=== PATIENT | male | born 1965 | race Caucasian/White ===

== ENCOUNTER 2020-11-17 08:35 | Outpatient (CLI) | payer BC, SELFPAY | END 2020-11-17 08:36 | disposition home or self-care (01) | PROVIDERS: PCP Internal Medicine; Visit Provider Physician Assistant | DX: I49.9 Cardiac arrhythmia, unspecified (principal) | CPT/HCPCS: 93225; 93226 ==

== ENCOUNTER 2024-08-14 01:27 | Day surgery (SDC) | payer BC, SELFPAY ==
[2024-08-02 08:54] VITALS: BMI 33.0
--- OUTSIDE RECORDS SUMMARY | 2024-08-14 01:30 | XMS_ITS | Referral Summary ---
Author Organization [facility] Address [address] [place] [address] Care Team Providers Care Armor Officer Name Role Phone Jarred High MD Primary Care Provider [phone]- [phone] Encounters Date Type Department Care Team Description 08/07/2024 12:00 PM SWIMMING POOL MAINTENANCE SUPERVISOR - 08/07/2024 11:59 PM SWIMMING POOL MAINTENANCE SUPERVISOR Hospital Encounter [id number] [address] [place] [address] [address] [place] [address] Chronic pain of left knee Discharge Disposition: Discharge to home or self care 08/07/2024 12:30 PM SWIMMING POOL MAINTENANCE SUPERVISOR Office Visit [facility] Orthopaedic Surgery [address] [place] [address] Medical Office Building [address] [place] [address] Ally Chapin MD Chronic pain of left knee (Primary Dx); Primary osteoarthritis of left knee from Last 3 Months Allergies No known active allergies Medications sildenafiL (VIAGRA) 100 mg tablet 1 Active lisinopriL (PRINIVIL,ZESTR IL) 40 mg tablet 2 Active atorvastatin (LIPITOR) 20 mg tablet Active meloxicam (MOBIC) 15 mg tabletIndicatio ns:Chronic pain of left knee Take 1 tablet (15 mg total) by mouth daily 30 tablet 4 Active buPROPion XL (WELLBUTRIN XL) 150 mg 24 hr tablet 4 Active fenofibrate micronized (LOFIBRA) 134 mg capsule 5 Active Zepbound 15 mg/0.5 mL pen injector 4 Active meloxicam (MOBIC) 15 mg tablet Take 1 tablet (15 mg total) by mouth daily 90 tablet 5 11/06/19 25 Active meloxicam (MOBIC) 15 mg tablet Take 1 tablet (15 mg total) by mouth daily 90 tablet 5 Active Zepbound 5 mg/0.5 mL pen injector 4 08/07/19 25 Discontinu ed(Prabhu burris) Hospital, Clinic, or Other Facility Administered Medication Ordered Dose Route Frequency Start Date End Date Status BUPivacaine HCl (MARCAINE) 0.25 % (2.5 mg/mL) injection 6 mLIndications:Primar y osteoarthritis of left knee 6 mL OTHER One-Time Injection 08/07/2024 5 Ended triamcinolone (KENALOG) 40 mg/mL injection 80 mgIndications:Primar y osteoarthritis of left knee 80 mg intra-artic One-Time Injection 08/07/2024 5 Ended Active Problems Problem Noted Date Diagnosed Date Pain in pelvis 09/12/2016 Lumbar radiculopathy 08/16/2016 Knee pain 05/16/2016 Immunizations Immunization Administration Dates Next Due Influenza, Quadrivalent, Lakia l Culture-based MDCK, Preservative Free, Antibiotic Free, Intramuscular 03/31/2021 Influenza, Quadrivalent, Spl it, Preservative Free, Intramuscular 03/26/2020 Influenza, Unspecified 03/23/2016 Tdap 10/19/2014 ZOSTER Recombinant 05/22/2020,03/30/2020 Social History Tobacco Use Types Packs/Day Years Used Date Smoking Tobacco: Never Sex and Gender Information Value Date Recorded Sex Assigned at Not on file Legal Sex Male 5:04 AM SWIMMING POOL MAINTENANCE SUPERVISOR Gender Identity Not on file Sexual Orientation Not on file Last Filed Vital Signs Vital Sign Reading Time Taken Comments Blood Pressure 111/76 03/01/2024 7:52 AM CDT Pulse 89 03/01/2024 7:52 AM CDT Temperature 35.9 C (96.6 F) 03/01/2024 7:52 AM CDT Respiratory Rate 16 03/01/2024 7:52 AM CDT Oxygen Saturation 98% 03/01/2024 7:52 AM CDT Inhaled Oxygen Concentration - - Weight 111.1 kg (245 lb) 03/01/2024 7:52 AM CDT Height 175.3 cm (5' 9 ) 03/01/2024 7:52 AM CDT Body Mass Index 36.18 03/01/2024 7:52 AM CDT Plan of Treatment Not on file Procedures Procedure Name Priority Date/Time Associated Diagnosis Comments XR KNEE LEFT 4 OR MORE VIEWS Schedule Routine, Read Routine (OP Routine) 08/07/2024 12:33 PM SWIMMING POOL MAINTENANCE SUPERVISOR Chronic pain of left knee [place] ARTHROCENTESIS ASPIR&/INJ MAJOR JT/BURSA W/O US Routine 08/07/2024 12:30 PM SWIMMING POOL MAINTENANCE SUPERVISOR Primary osteoarthritis of left knee from Last 3 Months Results * XR Knee Left 4 or More Views (08/07/2024 12:33 PM SWIMMING POOL MAINTENANCE SUPERVISOR) Anatomical Region Laterality Modality Lower Extremities, Knee Left Computed Radiography 08/07/2024 12:4 4 PM SWIMMING POOL MAINTENANCE SUPERVISOR Impressions 08/07/2024 12:44 PM SWIMMING POOL MAINTENANCE SUPERVISOR Progressive moderate medial and patellofemoral compartment predominant tricompartmental left knee osteoarthritis. Electronically signed by: Adrian Edouard M.D. Narrative 08/07/2024 12:44 PM SWIMMING POOL MAINTENANCE SUPERVISOR XR KNEE LEFT 4 OR MORE VIEWS HISTORY: Left knee pain. FINDINGS: 4 views of the left knee are obtained and compared with 08/03/2022. There is no fracture. There is progressive moderate medial and patellofemoral compartment predominant tricompartmental osteoarthritis. Alignment and soft tissues are normal. There is a small joint effusion. Procedure Note Adrian Edouard MD - 08/07/2024 XR KNEE LEFT 4 OR MORE VIEWS HISTORY: Left knee pain. FINDINGS: 4 views of the left knee are obtained and compared with 08/03/2022. There is no fracture. There is progressive moderate medial and patellofemoral compartment predominant tricompartmental osteoarthritis. Alignment and soft tissues are normal. There is a small joint effusion. IMPRESSION: Progressive moderate medial and patellofemoral compartment predominant tricompartmental left knee osteoarthritis. Electronically signed by: Adrian Edouard M.D. us Ally Chapin MD IMG XR PROCEDURES Louise l Result * [place] ARTHROCENTESIS ASPIR&/INJ MAJOR JT/BURSA W/O US (08/07/2024 12:30 PM SWIMMING POOL MAINTENANCE SUPERVISOR) Narrative Ally Chapin MD - 08/07/2024 12:30 PM SWIMMING POOL MAINTENANCE SUPERVISOR Ally Chapin MD 08/07/2024 12:58 PM Large Joint Injection: L knee Performed by: Ally Chapin MD Authorized by: Ally Chapin MD Large Joint Injection/Aspiration: Consent Given by: Patient Verbal consent obtained: Yes Supporting Documentation: Indications: Pain Procedure Details: Location: Knee Site: L knee Prep: patient was prepped using a clean technique Needle Size: 22 G Approach: Superior lateral Medications: 6 mL BUPivacaine HCl 0.25 % (2.5 mg/mL); 80 mg triamcinolone 40 mg/mL Patient tolerance: Patient tolerated the procedure well with no immediate complications Risks and benefits were discussed with the patient and they elected to proceed with the injection Ally Chapin MD IN CLINIC/BEDSIDE [facility] Final Result from Last 3 Months Insurance [facility] OOS BLUE ACC CHOICE OOS BLUE [facility] CHO[facility] OOS Care Teams Armor Officer Relationship Specialty Start Date End Date Jarred High MD [address] [place], [place] [id number] PCP - General 08/11/16
--- OUTSIDE RECORDS SUMMARY | 2024-08-14 01:30 | XMS_ITS | Clinical Summary ---
Author Organization [facility] al Address [address] [place] [address] Care Team Providers Care Mice Raiser Name Role Phone Jarred High MD Primary Care Provider +1- [phone] Allergies No known active allergies Medications sildenafiL [...] 09/12/2016 Lumbar radiculopathy 08/16/2016 Knee pain 05/16/2016 Encounters Date Type Department Care Team Description 08/07/2024 12:30 PM MARKER HAND Office Visit [facility] Orthopaedic Surgery [address] [facility] Medical Office Building [address] [place] [id number] Ally Chapin MD Chronic pain of left knee (Primary Dx); Primary osteoarthritis of left knee 08/07/2024 12:00 PM MARKER HAND - 08/07/2024 11:59 PM MARKER HAND Hospital Encounter [id number] [address] [place] [address] [address] [place] [id number] Chronic pain of left knee Discharge Disposition: Discharge to home or self care from Last 3 Months Immunizations Immunization Administration Dates Next Due Influenza, Quadrivalent, Lakia l Culture-based MDCK, Preservative Free, Antibiotic Free, Intramuscular 03/31/2021 Influenza, Quadrivalent, Spl it, Preservative Free, Intramuscular 03/26/2020 Influenza, Unspecified 03/23/2016 Tdap 10/19/2014 ZOSTER Recombinant 05/22/2020,03/30/2020 Family History Medical History Relation Name Comments Alcohol abuse Father Family history of alcoholism - (Added by TW Conv) Arthritis Father Family history of arthritis - (Added by TW Conv) Heart disease Father Family history of cardiac disorder - (Added by TW Conv) Hypertension Father Family history of hypertension - (Added by TW Conv) Alcohol abuse Mother Family history of alcoholism - (Added by TW Conv) Arthritis Mother Family history of arthritis - (Added by TW Conv) Heart disease Mother Family history of cardiac disorder - (Added by TW Conv) Hypertension Mother Family history of hypertension - (Added by TW Conv) Relation Name Status Comments Father Mother Social History Tobacco Use Types Packs/Day Years Used Date Smoking Tobacco: Never Sex and Gender Information Value Date Recorded Sex Assigned at Not on file Legal Sex Male 5:04 AM MARKER HAND Gender Identity Not on file Sexual Orientation Not on file Obstetrics History Last Filed Vital Signs Vital Sign Reading [...] 03/01/2024 7:52 AM CDT Plan of Treatment Health Maintenance Due Date Last Done Comments Colon Cancer Screening-Colonoscopy 1965 Depression Screening 1965 Hepatitis C Screening 1965 Prostate Cancer Screening-PSA 1963 Hepatitis B Screening 12/04/1981 Regular Well Visit/Exam 18-64 12/04/1981 Covid-19 Vaccine ( - 2023-2 5 season) 2024 04/12/2021, 09/01/2020, 08/04/2020 Influenza Vaccine (#1) 2024 , 03/26/2020, 03/23/2016 DTaP/Tdap/Td Vaccine (2 - Td or Tdap) 10/19/2024 10/19/2014 Zoster Vaccine Completed 05/22/2020, 03/30/2020 Pneumococcal vaccine <65 Aged Out No longer eligible based on patient's age to complete this topic Procedures Procedure Name Priority Date/Time Associated Diagnosis Comments XR KNEE LEFT 4 OR MORE VIEWS Schedule Routine, Read Routine (OP Routine) 08/07/2024 12:33 PM MARKER HAND Chronic pain of left knee [place] ARTHROCENTESIS ASPIR&/INJ MAJOR JT/BURSA W/O US Routine 08/07/2024 12:30 PM MARKER HAND Primary osteoarthritis of left knee from Last 3 Months Results * XR Knee Left 4 or More Views (08/07/2024 12:33 PM MARKER HAND) Anatomical Region Laterality Modality Lower Extremities, Knee Left Computed Radiography 08/07/2024 12:4 4 PM MARKER HAND Impressions 08/07/2024 12:44 PM MARKER HAND Progressive moderate medial and patellofemoral compartment predominant tricompartmental left knee osteoarthritis. Electronically signed by: Adrian Edouard M.D. Narrative 08/07/2024 12:44 PM MARKER HAND XR KNEE LEFT 4 OR MORE VIEWS [...] IMG XR PROCEDURES Louise l Result * [place] ARTHROCENTESIS ASPIR&/INJ MAJOR JT/BURSA W/O US (08/07/2024 12:30 PM MARKER HAND) Narrative Ally Chapin MD - 08/07/2024 12:30 PM MARKER HAND Ally Chapin MD 08/07/2024 12:58 PM Large [...] they elected to proceed with the injection us Ally Chapin MD IN CLINIC/BEDSIDE NICK MAHONEY Final Result from Last 3 Months Insurance Fundly OOS Fundly OOS BLUE ACC CHOICE OOS Care Teams Mice Raiser Relationship Specialty Start Date End Date Jarred High MD [address] [facility] [address] [place] [address] PCP - General 08/11/16
[2024-08-14 06:45] VITALS: BP 132/79; PULSE 70; RESP 18; TEMP 36.1; O2SAT 96; BMI 34.4
[2024-08-14] MEDS: LACTATED RINGERS 1,000 ML 150 ML IV CONT (06:56)
--- NOTE | 2024-08-14 07:30 | P.PNAN_ITS ---
Anes - Initial Pre Proc Eval Procedure: Operation Date: 08/14/24 08:00 Proposed Procedures p Screening Colonoscopy - Joseph Holcomb MD Date/Time: 08/14/24 07:30 Surgeon: Joseph Holcomb MD Pre Op Diagnosis: Screening for malignant neoplasm of colon. Patient Data Age: 58 Gender: M Height: 1.78 m Weight: 109.1 kg Last Vital Signs Temp 97.0 F L 08/14/24 06:45 Pulse 70 08/14/24 06:45 Resp 18 08/14/24 06:45 BP 132/79 08/14/24 06:45 Pulse Ox 96 08/14/24 06:45 O2 Del Method Room Air 08/14/24 06:45 Allergies Allergy/AdvReac Type Severity Reaction Status Date / Time No Known Allergies Allergy Verified 08/14/24 06:43 Home Medications ?Medication ?Instructions ?Recorded ?Confirmed ?Type atorvastatin 20 mg tablet See Rx Instructions .Route 02/01/24 08/14/24 Rx .COMPLEX #90 tabs bupropion HCl 150 mg 24 hr tablet, 150 mg PO QAM #90 tabs 04/26/24 08/14/24 Rx extended release lisinopril 40 mg tablet 40 mg PO DAILY #90 tabs 04/26/24 08/14/24 Rx tirzepatide (weight loss) 15 15 mg (0.5 mL) subcut WEEKLY #6 mL 06/18/24 08/14/24 Rx mg/0.5 mL subcutaneous pen injector (Zepbound) sildenafil 100 mg tablet 100 mg PO DAILY PRN sexual 07/01/24 08/02/24 Rx activity #24 tabs fenofibrate micronized 134 mg 134 mg PO DAILY #90 caps 07/30/24 08/14/24 Rx capsule Patient hx anesthesia problems: none Family hx anesthesia problems: none Results Review: All pre-operative results and documents have been reviewed as part of the pre- operative evaluation. [facility] Past Medical History Medical History Pure hypercholesterolemia Other fatigue Neuropathy Left ear impacted cerumen Essential (primary) hypertension Dietary counseling and surveillance (10/19/16) Allergic rhinitis, unspecified BMI 36.0-36.9,adult Surgical History Surgical History Hx of colonoscopy History of hip replacement H/O bariatric surgery Family History Family History Mother Heart disease Father Patient's father is Heart disease Sibling Hypertension Hyperlipidemia Social History Social History Smoking packs per day: 0.5 Smoking cigarettes per day: 10.0 Years smoked: 2 Smoking pack-years: 1.00 Smoking status: Never smoker Second hand tobacco smoke exposure: No Smoking end date: 06/19/06 Alcohol intake: current Drinks per week: 10 Alcohol use details: socially Substance use: never Substance use type: does not use Do You Feel Safe in your Home?: Yes Lack of Transportation: No Lack of Food: Never True Current Housing: I Have Housing Concerned About Future Housing: No Difficulty Paying Gas/Electric Bills: No Difficulty Paying for Meds: No Currently Unemployed: No Education: High School Diploma/GED Difficulty w/ Childcare or Family Care: No Living arrangements: with family Occupation/Education: occupation 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 HTN, hyperlipidemia, BMI 34, NANNETTE on CPAP. Informed Consent: The patient's anesthetic plan and its attendant risks and benefits were discussed with the patient/family/POA. Questions were solicited and answers provided to the satisfaction of the patient/family/POA.
--- NOTE | 2024-08-14 08:03 | PM.IMHP ---
H&P: HPI History of Present Illness Date/Time: 08/14/24 08:03 Chief Complaint: Screening colonoscopy Narrative: This is the patient's 2nd colonoscopy. There are no GI symptoms and there is no family history of colorectal cancer. Review of Systems Review of Systems: All systems reviewed & are unremarkable except as noted in HPI and below PMFSH Past Medical History Medical History Pure hypercholesterolemia Other fatigue Neuropathy Left ear impacted cerumen Essential (primary) hypertension Dietary counseling and surveillance (10/19/16) Allergic rhinitis, unspecified BMI 36.0-36.9,adult Surgical History Surgical History Hx of colonoscopy History of hip replacement H/O bariatric surgery Family History Family History Mother Heart disease Father Patient's father is Heart disease Sibling Hypertension Hyperlipidemia Social History Social History Smoking packs per day: 0.5 Smoking cigarettes per day: 10.0 Years smoked: 2 Smoking pack-years: 1.00 Smoking status: Never smoker Second hand tobacco smoke exposure: No Smoking end date: 06/19/06 Alcohol intake: current Drinks per week: 10 Alcohol use details: socially Substance use: never Substance use type: does not use Do You Feel Safe in your Home?: Yes Lack of Transportation: No Lack of Food: Never True Current Housing: I Have Housing Concerned About Future Housing: No Difficulty Paying Gas/Electric Bills: No Difficulty Paying for Meds: No Currently Unemployed: No Education: High School Diploma/GED Difficulty w/ Childcare or Family Care: No Living arrangements: with family Occupation/Education: occupation 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 Gender identity (if verbalized by the patient): Male Spiritual care concerns: No Meds Home Medications and Allergies Home Medications ?Medication ?Instructions ?Recorded ?Confirmed ?Type atorvastatin 20 mg tablet See Rx Instructions .Route 02/01/24 08/14/24 Rx .COMPLEX #90 tabs bupropion HCl 150 mg 24 hr tablet, 150 mg PO QAM #90 tabs 04/26/24 08/14/24 Rx extended release lisinopril 40 mg tablet 40 mg PO DAILY #90 tabs 04/26/24 08/14/24 Rx tirzepatide (weight loss) 15 15 mg (0.5 mL) subcut WEEKLY #6 mL 06/18/24 08/14/24 Rx mg/0.5 mL subcutaneous pen injector (Zepbound) sildenafil 100 mg tablet 100 mg PO DAILY PRN sexual 07/01/24 08/02/24 Rx activity #24 tabs fenofibrate micronized 134 mg 134 mg PO DAILY #90 caps 07/30/24 08/14/24 Rx capsule Allergies Allergy/AdvReac Type Severity Reaction Status Date / Time No Known Allergies Allergy Verified 08/14/24 06:43 Vital Signs Vital Signs - 24 hr 08/14/24 06:45 Temperature 97.0 F L Pulse Rate 70 Respiratory Rate 18 Blood Pressure 132/79 Pulse Oximetry 96 Oxygen Delivery Room Air Exam Const: General: cooperative and healthy appearing Resp: Effort & Inspection: normal respiratory effort and able to speak in complete sentences Auscultation: clear to auscultation bilaterally Cardio: Rate: regular rate Rhythm: regular rhythm GI: Inspection: normal to inspection GI Palp: No No hepatosplenomegaly present Auscultation: normal bowel sounds Rectal Exam: deferred Skin: General skin exam: normal color Psych: Appearance: grossly normal Mental Status: mental status grossly normal Assessment and Plan Assessment and plan (1) Encounter for screening colonoscopy: Code(s): Z12.11 - Encounter for screening for malignant neoplasm of colon Status: Acute Assessment and Plan: The patient is deemed a good candidate for the procedure. Consent signed. Will proceed.
[2024-08-14 08:23] VITALS: BP 124/68; PULSE 85; RESP 18; O2SAT 96
[2024-08-14 08:33] VITALS: BP 113/75; PULSE 73; RESP 18; O2SAT 96
[2024-08-14 08:43] VITALS: BP 130/84; PULSE 72; RESP 16; O2SAT 98
== END 2024-08-14 08:56 | disposition home or self-care (01) ==
PROVIDERS: PCP Nurse Practitioner; Referring Provider Nurse Practitioner; Visit Provider Internal Medicine Gastroenterology
PROC: 0DJD8ZZ Inspection of Lower Intestinal Tract, Via Natural or Artificial Opening Endoscopic (ICD-10-PCS; CPT 45378; principal; 2024-08-14 08:00)
DX: Z12.11 Encounter for screening for malignant neoplasm of colon (principal); D12.2 Benign neoplasm of ascending colon; I10 Essential (primary) hypertension; E78.00 Pure hypercholesterolemia, unspecified; G62.9 Polyneuropathy, unspecified; E66.9 Obesity, unspecified; Z68.34 Body mass index [BMI] 34.0-34.9, adult; Z79.85 Long-term (current) use of injectable non-insulin antidiabetic drugs; Z98.890 Other specified postprocedural states; Z98.84 Bariatric surgery status; Z82.49 Family history of ischemic heart disease and other diseases of the circulatory system
CPT/HCPCS: 45385; 88305; J2704; J7120